=== PATIENT | male | born 1975 | race Caucasian/White ===

== ENCOUNTER 2021-04-21 20:09 | Emergency (ER) | payer OTHER ==
[~2021-04-21 20:09] MED LIST: CLEOCIN300 MG PO; HEPARIN 3010 UNIT/1 IV; JANTOVEN5 MG PO; KLOR-CON M 1010 MEQ PO; LASIX20 MG PO; LOPRESSOR25 MG PO; NORVASC5 MG PO; PROTONIX 40MG T40 MG PO; VANCOMYCIN1.75 GM/17 IV
[2021-04-21 20:48] LABS: BASOPHIL 0.2 % (0-2); EOSINOPHIL 0.7 % (0-5); HCT 44.8 % (42.0-52.0); HGB 15.4 g/dl (13.2-18.0); LYMPHOCYTE 11.4 % (15-48); MCHC 34.4 g/dL (32.0-36.0); MCV 90.1 fL (78.0-100.0); MPV 10.8 fL (6.0-9.5); NEUTROPHIL 80.3 % (41-80); NRBC 0; PLT 249 K/uL (150-400); RBC 4.97 M/uL (4.70-6.00); RDW 13.3 % (11.5-14.0)
[2021-04-21 20:53] LABS: INR 1.1 (0.9-1.2); PROTHROMBIN TIME 13.5 SECONDS (11.4-13.6); PTT 25.3 SECONDS (22.2-34.7)
[2021-04-21 20:57] LABS: ALBUMIN 3.7 g/dL (3.4-5.0); BILIRUBIN - TOTAL 1.5 mg/dL (0.2-1.0); BUN/CREAT RATIO (CALC) 9.2 RATIO; CREATININE 1.2 mg/dL (0.67-1.17); POTASSIUM 3.6 mmol/L (3.5-5.1); TOTAL PROTEIN 7.7 g/dL (6.4-8.2)
[2021-04-21 21:04] LABS: PRO-BNP 73 pg/mL (<125)
[2021-04-21 21:11] LABS: LACTIC ACID 2.3 mmol/L (0.4-1.9)
[2021-04-22] MEDS ORDERED: NORCO 5-325 TA1 EACH PO (02:06)
[2021-04-22] MEDS ORDERED: LOVENOX100 MG/1 M SC (02:06)
== END 2021-04-22 02:33 | disposition home or self-care (01) ==
LOC: FER 20:09
PROVIDERS: Emergency Medicine Emergency Medical Services
DX: R07.89 Other chest pain (principal); R79.1 Abnormal coagulation profile; R10.12 Left upper quadrant pain; R06.02 Shortness of breath; R11.2 Nausea with vomiting, unspecified; I10 Essential (primary) hypertension; Z88.0 Allergy status to penicillin; Z88.2 Allergy status to sulfonamides; Z88.6 Allergy status to analgesic agent; Z95.2 Presence of prosthetic heart valve; Z79.01 Long term (current) use of anticoagulants; Z79.899 Other long term (current) drug therapy
CPT/HCPCS: 36415; 71045; 71275; 80053; 83605; 83690; 83880; 84145; 84484; 85025; 85379; 85610; 85730; 93005; 96372; J1650; J2270; J2405; J7040

== ENCOUNTER 2022-05-22 21:22 | Emergency (ER) | payer OTHER ==
[~2022-05-22 21:22] MED LIST changes: +LOVENOX100 MG/1 M SC; +NORCO 5-325 TA1 EACH PO
[2022-05-22] MEDS ORDERED: JANTOVEN5 MG PO (22:42)
== END 2022-05-22 23:06 | disposition home or self-care (01) ==
LOC: FER 21:22
DX: S61.412A Laceration without foreign body of left hand, initial encounter (principal); Z76.0 Encounter for issue of repeat prescription; Z88.0 Allergy status to penicillin; Z88.2 Allergy status to sulfonamides; Z88.6 Allergy status to analgesic agent; Y00.XXXA Assault by blunt object, initial encounter; Y92.009 Unspecified place in unspecified non-institutional (private) residence as the place of occurrence of the external cause
CPT/HCPCS: 70450; 90471; 90715

== ENCOUNTER 2022-06-12 12:22 | Day surgery (SDCO) | payer OTHER ==
[~2022-06-12] VITALS: Ht 180.3 cm; Wt 100.5 kg
[2022-06-12 13:24] LABS: BASOPHIL 0.3 % (0-2); EOSINOPHIL 0.1 % (0-5); HCT 43.3 % (42.0-52.0); LYMPHOCYTE 7.4 % (15-48); MCHC 34.6 g/dL (32.0-36.0); MCV 89.5 fL (78.0-100.0); MONOCYTE 10.9 % (0-12); MPV 10.8 fL (6.0-9.5); NEUTROPHIL 80.7 % (41-80); NRBC 0; PLT 277 K/uL (150-400); RBC 4.84 M/uL (4.70-6.00); RDW 13.2 % (11.5-14.0); WBC 17.5 K/uL (4.0-10.5)
[2022-06-12 13:36] LABS: INR 1.14 (0.9-1.2); PROTHROMBIN TIME 14.3 SECONDS (11.9-13.9)
[2022-06-12 13:43] LABS: ALBUMIN 3.9 g/dL (3.4-5.0); BILIRUBIN - TOTAL 1.8 mg/dL (0.2-1.0); BUN/CREAT RATIO (CALC) 11.9 RATIO; CREATININE 1.18 mg/dL (0.67-1.17); GLOBULIN (CALCULATION) 3.6 g/dL; TOTAL PROTEIN 7.5 g/dL (6.4-8.2)
[2022-06-12 13:48] LABS: LACTIC ACID 0.7 mmol/L (0.4-1.9)
[2022-06-12 13:52] LABS: BILIRUBIN NEGATIVE (NEGATIVE); BLOOD TRACE-INTACT Ery/uL (NEGATIVE); CLARITY CLEAR (CLEAR); COLOR YELLOW (YELLOW); GLUCOSE (U) NORMAL (NORMAL); LEUKOCYTES NEGATIVE Leu/uL (NEGATIVE); NITRITE NEGATIVE (NEGATIVE); PROTEIN 2+ mg/dL (NEGATIVE); SPECIFIC GRAVITY >=1.030 (1.001-1.030)
[2022-06-12 14:06] LABS: SPERM PRESENT; SQUAMOUS EPITHELIAL CELLS RARE; URINARY WBC RARE
[2022-06-12 15:26] LABS: ECSTASY (MDMA) POSITIVE (NEGATIVE); MARIJUANA (THC) NEGATIVE (NEGATIVE); METHADONE NEGATIVE (NEGATIVE)
[2022-06-12 15:27] LABS: AMPHETAMINES POSITIVE (NEGATIVE); BARBITURATES NEGATIVE (NEGATIVE); OPIATES NEGATIVE (NEGATIVE); OXYCODONE NEGATIVE (NEGATIVE)
[2022-06-12] MEDS ORDERED: LOPRESSOR25 MG PO (17:58)
[2022-06-12] MEDS ORDERED: WARFARIN SODIU7.5 MG PO (17:58)
[2022-06-12] MEDS ORDERED: LASIX20 MG PO (17:59)
[2022-06-12] MEDS ORDERED: PROTONIX 40MG T40 MG PO (17:59)
[2022-06-12] MEDS ORDERED: POTASSIUM CHLO20 ME2 PO (18:00)
[2022-06-12] MEDS ORDERED: NORVASC5 MG PO (18:01)
[2022-06-12] MEDS ORDERED: LIPITOR40 MG PO (18:02)
[2022-06-13 06:41] LABS: BASOPHIL 0.4 % (0-2); EOSINOPHIL 0.6 % (0-5); HCT 43.8 % (42.0-52.0); HGB 14.6 g/dl (13.2-18.0); LYMPHOCYTE 11.3 % (15-48); MCH 30.3 pg (25.0-31.0); MCHC 33.3 g/dL (32.0-36.0); MCV 90.9 fL (78.0-100.0); MONOCYTE 11.8 % (0-12); MPV 10.6 fL (6.0-9.5); NEUTROPHIL 75.2 % (41-80); NRBC 0; PLT 255 K/uL (150-400); RBC 4.82 M/uL (4.70-6.00); RDW 13.2 % (11.5-14.0)
[2022-06-13 06:42] LABS: WBC 14.3 K/uL (4.0-10.5)
[2022-06-13 06:56] LABS: INR 1.31 (0.9-1.2); PROTHROMBIN TIME 15.9 SECONDS (11.9-13.9)
[2022-06-13 07:25] LABS: ALBUMIN 3.1 g/dL (3.4-5.0); ALKALINE PHOSHATASE 95 U/L (46-116); ALT 31 U/L (16-63); AST 25 U/L (15-37); BILIRUBIN - TOTAL 1.3 mg/dL (0.2-1.0); BUN 10 mg/dL (7-18); BUN/CREAT RATIO (CALC) 9.5 RATIO; C-REACTIVE PROTEIN >18.00 mg/dL (<=0.90); CHLORIDE 102 mmol/L (98-107); CO2 (BICARBONATE) 26 mmol/L (21-32); CREATININE 1.05 mg/dL (0.67-1.17); GLOBULIN (CALCULATION) 4.2 g/dL; GLUCOSE 106 mg/dL (74-106); POTASSIUM 4.3 mmol/L (3.5-5.1); TOTAL PROTEIN 7.3 g/dL (6.4-8.2)
--- NOTE | 2022-06-13 13:20 | NUR ---
STARTED PRIOR AUTH FOR ZYVOX AT DISCHARGE. PER PHARMACY WITHOUT PA WILL COST $[id number], OTHERWISE IS 0 DOLLAR COPAY. SPOKE WITH SEAN AT [employer] ([phone]), WILL FAX DETERMINATION TO [facility] FAX, 24 HOUR TURN AROUND TIME. CASE# [id number]
[2022-06-14 07:20] LABS: BUN/CREAT RATIO (CALC) 11.3 RATIO; CREATININE 0.97 mg/dL (0.67-1.17); MAGNESIUM 1.9 mg/dL (1.8-2.4); POTASSIUM 4.1 mmol/L (3.5-5.1)
[2022-06-14 07:25] LABS: BASOPHIL 0.5 % (0-2); EOSINOPHIL 1.7 % (0-5); HCT 40.6 % (42.0-52.0); HGB 13.6 g/dl (13.2-18.0); LYMPHOCYTE 14.4 % (15-48); MCH 30.5 pg (25.0-31.0); MCHC 33.5 g/dL (32.0-36.0); MONOCYTE 11.1 % (0-12); NEUTROPHIL 71.9 % (41-80); NRBC 0; PLT 277 K/uL (150-400); RBC 4.46 M/uL (4.70-6.00); RDW 13.1 % (11.5-14.0); WBC 11.2 K/uL (4.0-10.5)
--- NOTE | 2022-06-14 09:54 | NUR ---
CARE COORDINATION: PRIOR AUTH FOR ZYVOX APPROVED. PATIENT HAS 0$ COPAY, WILL NOT COST PATIENT.
--- NOTE | 2022-06-14 12:57 | NUR ---
CARE COORDINATION: PATIENT DOES NOT HAVE PRIMARY CARE. REACHED OUT TO SCHEDULERS TO FIND ONE PRIOR TO DISCHARGE
--- NOTE | 2022-06-14 21:25 | NUR ---
PATIENT WAS COMFORTABLE AND CONTENT IN ROOM UNTIL PATIENTS EX GIRLFRIEND CAME TO VISIT. GIRLFRIEND WALKED OUT THE DOOR IN A HURRY AND SEEMED ANGRY. PATIENT CALLED NURSE INTO ROOM TO ASK HOW HE CAN SIGN HIMSELF OUT. NURSE INSTRUCTED PATIENTS ON THE RISKS OF LEAVING AMA AND WHAT THE BENEFITS OF STAYING WOULD BE. PATIENT IS A FALL RISK, BUT IS COMPLETELY ALERT AND ORIENTED. HE REFUSED TO STAY INPATIENT AND WANTS TO WALK OUT NOW. DR ENGLAND AND MAHESH IN CLASS SPECIAL EDUCATION TEACHER AWARE.
[2022-06-18] MEDS ORDERED: ZYVOX600 MG PO (09:19)
== END 2022-06-14 21:28 | disposition left against medical advice (07) ==
LOC: FER 12:22 → FMS 15:36
PROVIDERS: Emergency Medicine; ADMIT Internal Medicine
DX: L03.115 Cellulitis of right lower limb (principal); I10 Essential (primary) hypertension; E78.5 Hyperlipidemia, unspecified; F17.200 Nicotine dependence, unspecified, uncomplicated; F19.10 Other psychoactive substance abuse, uncomplicated; Z95.2 Presence of prosthetic heart valve; Z79.01 Long term (current) use of anticoagulants; Z79.899 Other long term (current) drug therapy; Z88.0 Allergy status to penicillin; Z88.2 Allergy status to sulfonamides; Z88.6 Allergy status to analgesic agent; Z82.49 Family history of ischemic heart disease and other diseases of the circulatory system
CPT/HCPCS: 36415; 71045; 73700; 80048; 80053; 80305; 81001; 83605; 83735; 84145; 85025; 85610; 86140; 87040; 87088; 94010; G0378; J0690; J1650; J2020; J3370; J7030

== ENCOUNTER 2022-06-14 21:51 | Day surgery (SDCO) | payer OTHER ==
[~2022-06-14] VITALS: Ht 180.3 cm; Wt 104.0 kg
[~2022-06-14 21:51] MED LIST changes: +LIPITOR40 MG PO; +POTASSIUM CHLO20 ME2 PO; +WARFARIN SODIU7.5 MG PO
[2022-06-15 00:09] LABS: BASOPHIL 0.4 % (0-2); EOSINOPHIL 0.8 % (0-5); HCT 42.6 % (42.0-52.0); HGB 14.4 g/dl (13.2-18.0); LYMPHOCYTE 5.8 % (15-48); MCH 30.6 pg (25.0-31.0); MCHC 33.8 g/dL (32.0-36.0); MCV 90.4 fL (78.0-100.0); MONOCYTE 7.6 % (0-12); MPV 10.4 fL (6.0-9.5); NRBC 0; PLT 291 K/uL (150-400); RBC 4.71 M/uL (4.70-6.00); WBC 16.5 K/uL (4.0-10.5)
[2022-06-15 00:31] LABS: INR 1.61 (0.9-1.2); PROTHROMBIN TIME 18.6 SECONDS (11.9-13.9)
[2022-06-15 00:38] LABS: ALBUMIN 3.2 g/dL (3.4-5.0); BILIRUBIN - TOTAL 0.6 mg/dL (0.2-1.0); BUN/CREAT RATIO (CALC) 10.1 RATIO; C-REACTIVE PROTEIN 12.8 mg/dL (<=0.90); CREATININE 1.09 mg/dL (0.67-1.17); GLOBULIN (CALCULATION) 4.4 g/dL; POTASSIUM 4.4 mmol/L (3.5-5.1); TOTAL PROTEIN 7.6 g/dL (6.4-8.2)
--- NOTE | 2022-06-15 12:46 | NUR ---
ORDERED WHEELCHAIR FROM [facility].
[2022-06-16 12:32] LABS: INR 2.1 (0.9-1.2); PROTHROMBIN TIME 22.8 SECONDS (11.9-13.9)
[2022-06-16] MEDS ORDERED: LASIX20 MG PO (13:33)
[2022-06-16] MEDS ORDERED: LIPITOR40 MG PO (13:33)
[2022-06-16] MEDS ORDERED: NORVASC5 MG PO (13:33)
[2022-06-16] MEDS ORDERED: POTASSIUM CHLO20 ME2 PO (13:33)
[2022-06-16] MEDS ORDERED: NORCO 5-325 TA1 EACH PO (13:33)
[2022-06-16] MEDS ORDERED: LOPRESSOR25 MG PO (13:33)
[2022-06-16] MEDS ORDERED: WARFARIN SODIU7.5 MG PO (13:33)
[2022-06-16] MEDS ORDERED: PROTONIX 40MG T40 MG PO (13:33)
--- NOTE | 2022-06-18 09:09 | NUR ---
CALL TO TECHNICAL BUSINESS SYSTEMS ANALYST WHO STATED SHE WILL LET HIM KNOW HIS MESSAGES. F/U APT WITH ISHMAEL SHANDA RAMIREZ IS 06/21 AT 3PM. SHE STATED THEY WERE UNABLE TO GET HIS ANTIBIOTIC. DR ENGLAND WAS INFORMED OF THIS
[2022-06-18] MEDS ORDERED: ZYVOX600 MG PO (09:19)
== END 2022-06-16 14:20 | disposition home or self-care (01) ==
LOC: FER 21:51 → FMS 06-15 00:58
PROVIDERS: Emergency Medicine; ADMIT Internal Medicine
DX: L03.115 Cellulitis of right lower limb (principal); I16.0 Hypertensive urgency; I10 Essential (primary) hypertension; E78.5 Hyperlipidemia, unspecified; F17.200 Nicotine dependence, unspecified, uncomplicated; Z91.14 Patient's other noncompliance with medication regimen; Z59.00 Homelessness unspecified; Z79.01 Long term (current) use of anticoagulants; Z79.899 Other long term (current) drug therapy; Z88.0 Allergy status to penicillin; Z88.2 Allergy status to sulfonamides; Z88.8 Allergy status to other drugs, medicaments and biological substances; Z95.2 Presence of prosthetic heart valve; Z28.310 Unvaccinated for COVID-19
CPT/HCPCS: 36415; 80053; 84145; 85025; 85610; 86140; 94010; 97162; 97165; 99284; G0378; J2020

== ENCOUNTER 2022-08-02 17:22 | Emergency (ER) | payer OTHER ==
[~2022-08-02 17:22] MED LIST changes: +ZYVOX600 MG PO
[2022-08-02 18:29] LABS: BASOPHIL 0.7 % (0-2); EOSINOPHIL 1.8 % (0-5); HGB 13.6 g/dl (13.2-18.0); MCH 30.2 pg (25.0-31.0); MCHC 33.2 g/dL (32.0-36.0); MCV 91.1 fL (78.0-100.0); MONOCYTE 8.3 % (0-12); MPV 10.5 fL (6.0-9.5); NEUTROPHIL 71.9 % (41-80); NRBC 0; PLT 285 K/uL (150-400); RDW 13.8 % (11.5-14.0); WBC 9.9 K/uL (4.0-10.5)
[2022-08-02 18:32] LABS: ALBUMIN 3.3 g/dL (3.4-5.0); BILIRUBIN - TOTAL 0.8 mg/dL (0.2-1.0); BUN/CREAT RATIO (CALC) 11.7 RATIO; CREATININE 1.03 mg/dL (0.67-1.17); GLOBULIN (CALCULATION) 3.8 g/dL; POTASSIUM 3.7 mmol/L (3.5-5.1); TOTAL PROTEIN 7.1 g/dL (6.4-8.2)
[2022-08-02 19:25] LABS: INR 1.02 (0.9-1.2); PROTHROMBIN TIME 13.1 SECONDS (11.9-13.9); PTT 25.2 SECONDS (24.9-34.6)
[2022-08-11] MEDS ORDERED: VITAMIN B-121000 MCG PO (17:42)
[2022-08-11] MEDS ORDERED: LOVENOX100 MG/1 M SC (17:44)
[2022-08-12] MEDS ORDERED: LEVAQUIN500 MG PO (17:36)
[2022-08-12] MEDS ORDERED: METRONIDAZOLE500 MG PO (17:36)
== END 2022-08-03 00:30 | disposition other institution (70) ==
LOC: FER 17:22
PROVIDERS: Internal Medicine
DX: G45.9 Transient cerebral ischemic attack, unspecified (principal); F17.210 Nicotine dependence, cigarettes, uncomplicated; Z79.01 Long term (current) use of anticoagulants; Z95.2 Presence of prosthetic heart valve
CPT/HCPCS: 36415; 70450; 71045; 80053; 84484; 85025; 85610; 85730; 93005